=== PATIENT | female | born 1935 | race Caucasian/White ===

== ENCOUNTER 2018-03-28 15:51 | Emergency (ER) | payer OTHER ==
[~2018-03-28] VITALS: Ht 144.8 cm; Wt 62.1 kg
[2018-03-28 15:57] VITALS: Ht 144.8 cm; Wt 62.1 kg
[2018-03-28] MEDS ORDERED: SOD CHLORIDE 0.9% 1,000 ML IV STA (16:58)
[2018-03-28] MEDS ORDERED: morphine 2 MG INJ IV STA (16:58)
[2018-03-28] MEDS ORDERED: ONDANSETRON 4 MG INJ IV STA (16:58)
[2018-03-28 17:30] VITALS: BP 116/68; PULSE 73; RESP 18
[2018-03-28] MEDS ORDERED: TRAM100T27 PO (17:30)
[2018-03-28] MEDS ORDERED: OLME1TAB29 PO (17:31)
[2018-03-28] MEDS ORDERED: CEFTRIAXONE 1 GM/50 ML (PMX) 50 ML IVPB ONE (19:00)
[2018-03-28] MEDS ORDERED: CIPR500T4 PO (19:34)
[2018-03-28] MEDS ORDERED: ONDA4TAB14 PO (19:34)
--- NOTE | 2018-03-28 19:35 | ERD ---
ER Documentation Chief Complaint Chief Complaint Sent from for eval HTN, and left knee pain HPI 82-year-old female with a history of cholelithiasis and hypertension sent by her primary care physician for evaluation of upper abdominal pain with nausea and vomiting for the past 2 days. Patient states that she has had right-sided upper abdominal pain which she thinks is secondary to her cholelithiasis. She has also had nausea and vomiting with decreased appetite. Vomiting is nonbloody and nonbilious. No associated fever, chills, diarrhea, constipation. She denies any dysuria. ROS All systems reviewed and are negative except as per history of present illness. Medications Home Meds Active Scripts Ondansetron (Ondansetron Odt) 4 Mg Tab.rapdis, 4 MG PO Q6H PRN for NAUSEA AND/OR VOMITING, #10 TAB Prov:COOPER RYAN MD 03/28/18 Ciprofloxacin Hcl* (Ciprofloxacin Hcl*) 500 Mg Tablet, 500 MG PO BID for 7 Days, TAB Prov:COOPER RYAN MD 03/28/18 Reported Medications Jefwztcfph-Mokbgydkkx-FPXI (Tribenzor) 20-5-12.5 Mg Tablet, 1 TAB PO DAILY, TAB 03/28/18 Tramadol Hcl* (Tramadol* ER) 100 Mg Tab.er.24h, 100 MG PO BID, #30 TAB 03/28/18 Allergies Allergies: Coded Allergies: Penicillins (Unverified Allergy, Unknown, 03/28/18) PMhx/Soc History of Surgery: Yes (Right knee surgery) Hx Cardiac Disorders: Yes (htn) Hx Miscellaneous Medical Probl: Yes (hernia, gallstones) Hx Alcohol Use: No Hx Substance Use: No Hx Tobacco Use: No Smoking Status: Never smoker FmHx Family History: No diabetes Physical Exam Vitals Vital Signs Date Temp Pulse Resp B/P (MAP) Pulse Ox O2 O2 Flow FiO2 Time Delivery Rate 03/28/18 73 18 116/68 100 Room Air 17:30 (84) 03/28/18 98.4 122 20 124/69 97 15:57 (87) Physical Exam Const: No acute distress, well-appearing, nontoxic Head: Atraumatic Eyes: Normal Conjunctiva, PERRLA, EOMI, no nystagmus ENT: Dry mucous membranes. Otherwise normal External Ears, Nose and Mouth. Neck: Full range of motion. No meningismus. Resp: Clear to auscultation bilaterally Cardio: Regular rate and rhythm, no murmurs Abd: Soft, mild right upper quadrant tenderness with no rebound or guarding. non distended. Normal bowel sounds Skin: No petechiae or rashes Back: No midline or flank tenderness Ext: No cyanosis, or edema Neur: Awake and alert, normal speech, no facial asymmetry, moving all extremities Psych: Normal Mood and Affect Result Diagram: 03/28/18 1710 03/28/18 171 Results 24 hrs Laboratory Tests Test 03/28/18 17:10 03/28/18 17:11 White Blood Count 11.1 10^3/ul Red Blood Count 4.58 10^6/ul Hemoglobin 14.1 g/dl Hematocrit 41.1 % Mean Corpuscular Volume 89.7 fl Mean Corpuscular Hemoglobin 30.8 pg Mean Corpuscular Hemoglobin Concent 34.3 g/dl Red Cell Distribution Width 12.3 % Platelet Count 290 10^3/UL Mean Platelet Volume 10.8 fl Immature Granulocytes % 0.400 % Neutrophils % 67.6 % Lymphocytes % 24.3 % Monocytes % 5.9 % Eosinophils % 1.2 % Basophils % 0.6 % Nucleated Red Blood Cells % 0.0 /100WBC Immature Granulocytes # 0.040 10^3/ul Neutrophils # 7.5 10^3/ul Lymphocytes # 2.7 10^3/ul Monocytes # 0.7 10^3/ul Eosinophils # 0.1 10^3/ul Basophils # 0.1 10^3/ul Nucleated Red Blood Cells # 0.0 10^3/ul Sodium Level 137 mmol/L Potassium Level 3.8 mmol/L Chloride Level 101 mmol/L Carbon Dioxide Level 28 mmol/L Anion Gap 8 Blood Urea Nitrogen 20 mg/dl Creatinine 0.84 mg/dl Est Glomerular Filtrat Rate mL/min mL/min Glucose Level 116 mg/dl Calcium Level 9.7 mg/dl Total Bilirubin 0.2 mg/dl Direct Bilirubin 0.00 mg/dl Indirect Bilirubin 0.2 mg/dl Aspartate Amino Transf (AST/SGOT) 32 IU/L Alanine Aminotransferase (ALT/SGPT) 19 IU/L Alkaline Phosphatase 94 IU/L Total Protein 8.2 g/dl Albumin 4.4 g/dl Globulin 3.80 g/dl Albumin/Globulin Ratio 1.15 Lipase 84 U/L Urine Color YELLOW Urine Clarity CLEAR Urine pH 5.0 Urine Specific Yreka 1.018 Urine Ketones TRACE mg/dL Urine Nitrite NEGATIVE mg/dL Urine Bilirubin NEGATIVE mg/dL Urine Urobilinogen 1+ mg/dL Urine Leukocyte Esterase 1+ Fausto/ul Urine Microscopic RBC 1 /HPF Urine Microscopic WBC 15 /HPF Urine Hemoglobin NEGATIVE mg/dL Urine Glucose NEGATIVE mg/dL Urine Total Protein NEGATIVE mg/dl Current Medications Medications Dose Sig/Bryce Start Time Status Last (Trade) Ordered Route PRN Stop Time Admin Dose Reason Admin Sodium 1,000 ml @ Q1H STAT 03/28/18 DC 03/28/18 Chloride 1,000 mls/hr IV 16:58 17:26 03/28/18 17:57 Morphine 2 mg ONCE STAT 03/28/18 DC Sulfate IV 16:58 (morphine) 03/28/18 16:59 Ondansetron 4 mg ONCE STAT 03/28/18 DC 03/28/18 HCl (Zofran IV 16:58 17:26 Inj) 03/28/18 16:59 Ceftriaxone 50 ml @ ONCE ONCE 03/28/18 DC 03/28/18 Sodium 100 mls/hr IVPB 19:00 19:12 03/28/18 19:29 Ceftriaxone 500 mg ONCE ONCE 03/28/18 DC 03/28/18 Sodium IM 20:00 19:41 (Rocephin) 03/28/18 20:00 Procedures/MDM EMERGENT LABS AND DIAGNOSTIC STUDIES: Lab Results above were reviewed and interpreted by me. CBC: no anemia or evidence of infection CMP: No evidence of electrolyte abnormality, renal failure, hypoglycemia, liver failure, or biliary obstruction Lipase: no evidence of pancreatitis UA: findings consistent with acute infection Radiology Results as interpreted by Radiology below were reviewed by Shannan Ryan MD: Ultrasound of right upper quadrant shows cholelithiasis without evidence of cholecystitis or choledocholithiasis Initial Nursing notes reviewed. Previous Medical Records requested via the Electronic Health Record. EMERGENCY DEPARTMENT COURSE / MEDICAL DECISION MAKING: Patient is presenting with abdominal pain and nausea with vomiting. Here she has remained hemodynamically stable. IV fluids and antiemetics were given. There is no evidence of cholecystitis, choledocholithiasis, or pancreatitis. I do not suspect acute surgical abdomen. Her urinalysis was consistent with UTI but I have a low suspicion for pyelonephritis. 1 dose of Rocephin was given here and she will be discharged with ciprofloxacin. Return precautions were discussed with the patient and her daughter at bedside. Follow-up with PCP was recommended within 1 week. Patient's blood pressure was elevated (>120/80) but appears stable without evidence of hypertensive emergency or urgency. The patient was counseled about the risks of hypertension and urged to pursue outpatient monitoring and therapy within a week with their primary care physician. Departure Diagnosis: Primary Impression: UTI (urinary tract infection) Urinary tract infection type: site unspecified Hematuria presence: without hematuria Qualified Codes: N39.0 - Urinary tract infection, site not specified Additional Impression: Cholelithiases Cholelithiasis location: gallbladder Cholecystitis presence: without cholecystitis Biliary obstruction: without biliary obstruction Qualified Codes: K80.20 - Calculus of gallbladder without cholecystitis without obstruction Condition: Stable Patient Instructions: Understanding Urinary Tract Infections (UTIs), Gallstones COOPER RYAN MD Mar 28, 2018 19:35
[2018-03-28] MEDS ORDERED: CEFTRIAXONE 500 MG INJ IM ONE (20:00)
== END 2018-03-28 19:53 | disposition home or self-care (01) ==
LOC: E/R 15:51
DX: N39.0 Urinary tract infection, site not specified (principal); K80.20 Calculus of gallbladder without cholecystitis without obstruction; I10 Essential (primary) hypertension
CPT/HCPCS: 36415; 76705; 80053; 81001; 83690; 85025; 87086; 96372; 96374; 96375; 99285; J0696; J2405; J7030